=== PATIENT | male | born 1965 | race Caucasian/White ===

== ENCOUNTER 2023-05-20 06:02 | Day surgery (SDC) | payer BC, SELFPAY ==
[2023-05-03 08:47] VITALS: BMI 35.8
[2023-05-03 08:55] LABS: Hematocrit 40.4 % (39.0-52.0); Hemoglobin 13.7 g/dL (13.0-18.0); Mean Corp Hgb Conc. 33.9 g/dL (33.0-37.0); Mean Corpuscular Hgb 29.6 pg (27.0-31.0); Mean Corpuscular Volume 87.3 fL (80.0-94.0); Mean Platelet Volume 10.1 fL (7.4-10.4); Platelet Count 243 10^3/uL (130-400); Red Blood Cell Count 4.63 10^6/uL (4.70-6.10); Red Cell Dist. Width 13.2 % (11.5-14.5); White Blood Cell Count 4.6 10^3/uL (4.8-10.8)
[2023-05-03 09:15] LABS: Blood Urea Nitrogen 13 mg/dl (9-20); Calcium 9.4 mg/dl (8.4-10.2); Carbon Dioxide 27 mmol/L (22-30); Chloride 104 mmol/L (98-107); Estimated Creatinine Clearance 97 ml/min; Glucose 102 mg/dl (70-99); Potassium 4.6 mmol/L (3.5-5.1); Sodium 136 mmol/L (135-145); eGFR > 60.00
[2023-05-20] VITALS (11 sets, daily range): BP systolic 117–137; BP diastolic 72–87; BMI 35.8
[2023-05-20] MEDS: TYLENOL 1000 MG PO (06:38)
[2023-05-20] MEDS: NORMOSOL-R 1000 IV (06:41)
--- NOTE | 2023-05-20 06:59 | W.SUR.PREOP ---
Pre-Operative Surgical Note
-
I have examined this patient prior to the performance of the scheduled procedure.
The patient's condition is unchanged from the time of the current History and
Physical and the patient is able to undergo the scheduled procedure.
--- NOTE | 2023-05-20 09:37 | W.IMMPOSTOP ---
Addendum entered and electronically signed by Didier Estrella MD 05/20/23 09:45:
#[id number]
Original Note:
Surgical Immed Post Op Note
-
Primary Surgeon: Delores
Assisting Surgeon: J Carlos MORIN
Pre-op Diagnosis: UH
Post-op Diagnosis: UH 2.4cm
Procedure Performed: RAL JULY UHR with mesh; soft 11cm x14cm
Anesthesia Type: GETA + 0.25% Marcaine
Specimen / Cultures: none
Estimated Blood Loss: 10mL
Complications: none immediate
Operative Findings: UH 2.5cm defect. 0PDS Stratafix closure. JULY repair. bard soft mesh 11cm wide x 14cm long vertically. left sided dock with 8mm x 3 trochars
[2023-05-20] MEDS: ZOFRAN 4 MG IV (10:09)
== END 2023-05-20 11:25 | disposition home or self-care (01) ==
LOC: SDS 06:02
PROVIDERS: ATTENDING PHYSICIAN Surgery; FAMILY PHYSICIAN Family Medicine
DX: K42.9 Umbilical hernia without obstruction or gangrene (principal)
CPT/HCPCS: 49591; 36415; 80048; 85027; 93005; C1781

== ENCOUNTER → 2024-07-07 14:30 | Outpatient (REF) | payer BC, SELFPAY | LOC: RAD 14:30 | PROVIDERS: ATTENDING PHYSICIAN Physician Assistant Medical; FAMILY PHYSICIAN Family Medicine | DX: R06.2 Wheezing (principal) | CPT/HCPCS: 71046 ==

== ENCOUNTER → 2024-07-10 08:11 | Outpatient (REF) | payer BC, SELFPAY ==
[2024-07-10 08:49] LABS: % Basophils 0.9 % (0-2); % Eosinophils 7.9 % (0-6); % Immature Granulocytes 0.2 % (0-0.5); % Lymphocytes 38.5 % (20.5-51.1); % Neutrophils 43.5 % (42.2-75.2); Absolute Eosinophils 0.4 10^3/uL (0-0.7); Absolute Lymphocytes 1.7 10^3/uL (1.2-3.4); Absolute Monocytes 0.4 10^3/uL (0.1-0.6); Absolute Neutrophils 1.9 10^3/uL (1.4-6.5); Hemoglobin 14.8 g/dL (13.0-18.0); Mean Corp Hgb Conc. 34.4 g/dL (33.0-37.0); Mean Corpuscular Volume 90.1 fL (80.0-94.0); Mean Platelet Volume 10.2 fL (7.4-10.4); Platelet Count 267 10^3/uL (130-400); Red Blood Cell Count 4.77 10^6/uL (4.70-6.10); White Blood Cell Count 4.4 10^3/uL (4.8-10.8)
[2024-07-10 09:40] LABS: ALT (SGPT) 52 U/L (0-50); AST (SGOT) 28 U/L (17-59); Albumin 4.9 g/dl (3.5-5.0); Alkaline Phosphatase 71 U/L (38-126); Blood Urea Nitrogen 17 mg/dl (9-20); Calcium 9.9 mg/dl (8.4-10.2); Carbon Dioxide 25 mmol/L (22-30); Chloride 105 mmol/L (98-107); Glucose 106 mg/dl (70-99); HDL Cholesterol 44 mg/dl; LDL Cholesterol, Calculated 197 mg/dl; Potassium 4.7 mmol/L (3.5-5.1); Sodium 140 mmol/L (135-145); Total Bilirubin 0.5 mg/dl (0.2-1.3); Total Cholesterol 299 mg/dl (50-199); Total Protein 7.4 g/dl (6.3-8.2); Triglyceride 293 mg/dl (10-149); Very Low Density Lipoprotein 58 mg/dl (0-30); eGFR > 60.00
[2024-07-10 10:12] LABS: PSA, Total - Diagnostic 2.35 ng/ml (0.0-4.0); TSH 4.01 uIU/ml (0.47-4.68)
[2024-07-10 10:33] LABS: Glycohemoglobin (HgbA1c) 5.3 % (4.0-5.6)
== END ==
LOC: OIDL 08:11
PROVIDERS: ATTENDING PHYSICIAN Physician Assistant Medical
DX: Z00.00 Encounter for general adult medical examination without abnormal findings (principal)
CPT/HCPCS: 80053; 80061; 83036; 84153; 84443; 85025